=== PATIENT | female | born 2000 | race Two or more races ===

== ENCOUNTER 2024-04-30 19:29 | Outpatient (CLI) | payer OTHER ==
[~2024-04-30] VITALS: Ht 160 cm; Wt 90.7 kg
[~2024-04-30 19:29] MED LIST: CEFUROXIME500 MG PO; PRENATAL CAPLE1 EAC1 PO
[2024-04-30] MEDS ORDERED: RINGERS SOLUTION,LACTATED 1,000 ML IV SCH (19:45)
[2024-04-30 20:44] LABS: HEMATOCRIT 35.1 % (36.0-45.00); HEMOGLOBIN 11.8 g/dL (12.0-15.00); MEAN CELL VOLUME 88.3 fL (80.00-100.00); MEAN CORPUSCULAR HEMOGLOBIN 29.8 pg (27.00-32.0); MEAN CORPUSCULAR HGB CONC 33.8 g/dl (32.0-36.0); PLATELET COUNT 283 K/uL (150-450); RED BLOOD COUNT 3.97 M/uL (4.00-6.00); RED CELL DISTRIBUTION WIDTH 13.2 % (11.5-14.5)
[2024-04-30 20:51] LABS: URINE APPEARANCE Clear; URINE BILIRRUBIN Negative (NEGATIVE); URINE BLOOD Negative; URINE COLOR Yellow; URINE GLUCOSE Negative (NEGATIVE); URINE KETONE 15 (NEGATIVE); URINE LEUKOCYTE Negative; URINE NITRATE Negative; URINE PROTEIN Negative (NEGATIVE)
[2024-04-30 20:55] LABS: URINE EPITHELIAL CELLS 37.8 uL (0.0-38.8); URINE RBC 2.4 uL (0.0-20.8)
[2024-04-30 21:05] LABS: URINE CAST 0.91 uL (0.0-1.40); URINE MUCUS HEAVY
== END 2024-05-01 13:49 | disposition home or self-care (01) ==
LOC: OBS/DEL 19:29
PROVIDERS: Specialist; ATTEND Obstetrics & Gynecology
DX: O26.893 Other specified pregnancy related conditions, third trimester (principal); Z3A.36 36 weeks gestation of pregnancy; O26.849 Uterine size-date discrepancy, unspecified trimester; O36.8199 Decreased fetal movements, unspecified trimester, other fetus; O36.5990 Maternal care for other known or suspected poor fetal growth, unspecified trimester, not applicable or unspecified

== ENCOUNTER 2024-05-03 11:29 | Inpatient (IN) | payer OTHER ==
[~2024-05-03] VITALS: Ht 160 cm; Wt 90.7 kg
[2024-05-03 12:14] LABS: URINE APPEARANCE Clear; URINE BILIRRUBIN Negative (NEGATIVE); URINE BLOOD Negative; URINE COLOR Yellow; URINE GLUCOSE Negative (NEGATIVE); URINE LEUKOCYTE Negative; URINE NITRATE Negative; URINE PROTEIN Negative (NEGATIVE); URINE UROBILINOGEN 0.2 E.U./dl
[2024-05-03 12:19] LABS: URINE BACTERIA 1220.4 uL (0.0-1933); URINE EPITHELIAL CELLS 10.8 uL (0.0-38.8); URINE RBC 2.4 uL (0.0-20.8)
[2024-05-03 12:20] LABS: HEMOGLOBIN 12.7 g/dL (12.0-15.00); MEAN CELL VOLUME 86.8 fL (80.00-100.00); MEAN CORPUSCULAR HEMOGLOBIN 29.8 pg (27.00-32.0); MEAN CORPUSCULAR HGB CONC 34.4 g/dl (32.0-36.0); PLATELET COUNT 279 K/uL (150-450); RED BLOOD COUNT 4.26 M/uL (4.00-6.00); RED CELL DISTRIBUTION WIDTH 13.4 % (11.5-14.5)
[2024-05-03 12:43] LABS: CALCIUM 8.9 mg/dL (8.5-10.1); CREATININE SERUM 0.53 mg/dL (0.55-1.02); GFR 142.95; POTASSIUM 4.57 mEq/L (3.5-5.1)
[2024-05-03 12:54] LABS: INR < 0.93; PARTIAL THROMBOPLASTIN TIME 26.4 SECONDS (22.0-34.0); PROTHROMBIN TIME 9.3 SECONDS (9.0-11.5)
[2024-05-04] MEDS ORDERED: PRENATAL + DHA1 EAC1 PO (07:28)
[2024-05-04] MEDS ORDERED: CEFAZOLIN SODIUM 1,000 MG VIAL ONE (17:05)
[2024-05-04] MEDS ORDERED: OXYTOCIN 10 UNITS/ML VIAL ONE (19:34)
[2024-05-04] MEDS ORDERED: ERYTHROMYCIN BASE 1 GM TUBE OP ONE ×2 (19:35→21:00)
[2024-05-04] MEDS ORDERED: CEFAZOLIN SODIUM 2,000 MG in 0.9 % SODIUM CHLORIDE 100 ML IV ONE (21:00)
[2024-05-04] MEDS ORDERED: OXYTOCIN 10 UNITS/ML VIAL IV ONE (21:00)
[2024-05-04] MEDS ORDERED: MORPHINE SULFATE 4 MG/ML VIAL IV PRN (22:15)
[2024-05-04] MEDS ORDERED: OXYTOCIN 1,000 ML IV SCH (22:45)
[2024-05-04] MEDS ORDERED: RINGERS SOLUTION,LACTATED 1,000 ML IV SCH (22:45)
[2024-05-04 22:48] LABS: ABG PH 7.351 (7.35-7.45); BASE EXCESS -2.3 mmol/l; BICARBONATE 23.3 mmol/l (23-25); SaO2 43.6 %; Tco2 24.6 mmol/l; o2 21 %; puncture site UMBILICAL
[2024-05-04 22:49] LABS: ABG PO2 26.2 mmHg (80-100)
[2024-05-05 01:56] LABS: HEMATOCRIT 34.9 % (36.0-45.00); HEMOGLOBIN 11.9 g/dL (12.0-15.00); MEAN CELL VOLUME 86.6 fL (80.00-100.00); MEAN CORPUSCULAR HEMOGLOBIN 29.6 pg (27.00-32.0); MEAN CORPUSCULAR HGB CONC 34.2 g/dl (32.0-36.0); PLATELET COUNT 265 K/uL (150-450); RED BLOOD COUNT 4.03 M/uL (4.00-6.00); RED CELL DISTRIBUTION WIDTH 13.1 % (11.5-14.5)
[2024-05-05] MEDS ORDERED: MORPHINE SULFATE 4 MG/ML CARTRIDGE IV PRN (07:15)
[2024-05-05] MEDS ORDERED: SIMETHICONE 125 MG CAPSULE PO SCH (09:00)
[2024-05-05] MEDS ORDERED: DOCUSATE SODIUM 100MG CAP PO SCH (09:00)
[2024-05-05] MEDS ORDERED: IBUprofen 800 MG TABLET PO PRN (09:00)
== END 2024-05-06 15:25 | disposition home or self-care (01) | DRG 788 ==
LOC: O/R 05-04 16:09 → OB/GYN 05-04 22:35
PROVIDERS: ADMIT Obstetrics & Gynecology; ATTEND Obstetrics & Gynecology
PROC: 4A1HXCZ Monitoring of Products of Conception, Cardiac Rate, External Approach (ICD-10-PCS; 2024-05-04)
PROC: 10D00Z1 Extraction of Products of Conception, Low, Open Approach (ICD-10-PCS; principal; 2024-05-04 17:00)
DX: O34.211 Maternal care for low transverse scar from previous cesarean delivery (principal); Z3A.39 39 weeks gestation of pregnancy; Z37.0 Single live birth; Z20.822 Contact with and (suspected) exposure to COVID-19